=== PATIENT | female | born 1945 | race Caucasian/White ===

== ENCOUNTER 2017-11-08 15:56 | Inpatient (IN) | payer BC, MEDICARE ==
[2017-11-08] VITALS (8 sets, daily range): BP systolic 125–155; BP diastolic 74–81
[~2017-11-08] VITALS: Ht 160 cm; Wt 78.8 kg
[2017-11-08] MEDS ORDERED: aspirin 81mg tab.chew PO ONE ×2 (16:20→19:50)
[2017-11-08 16:36] LABS: BASOPHILS % (AUTO) 0.7 % (0-1); EOSINOPHILS # (AUTO) 0.2 X10'3 (0-0.9); EOSINOPHILS % (AUTO) 2.3 % (0-6); HEMATOCRIT 40.7 % (35.0-45.0); HEMOGLOBIN 13.9 g/dl (12.0-16.0); LYMPHOCYTES % (AUTO) 27.4 % (21-51); MEAN CORPUSCULAR HEMOGLOBIN 28.6 PG (27.0-31.0); MEAN CORPUSCULAR HGB CONC 34.1 % (33.0-36.5); MEAN CORPUSCULAR VOLUME 83.9 FL (78-98); MEAN PLATELET VOLUME 8.6 FL (7.4-10.4); MONOCYTES # (AUTO) 0.5 X10'3 (0-0.9); MONOCYTES % (AUTO) 6.6 % (2-12); NEUTROPHILS # (AUTO) 4.6 X10'3 (1.8-7.7); PLATELET COUNT 270 X10'3 (140-440); RED BLOOD COUNT 4.86 X10'6 (4.20-5.60); RED CELL DISTRIBUTION WIDTH 14.3 % (11.5-14.5); WHITE BLOOD COUNT 7.3 X10'3 (4.5-11.0)
[2017-11-08 16:48] LABS: PARTIAL THROMBOPLASTIN TIME 26 SECONDS (22-32); PROTHROMBIN TIME 10.1 SECONDS (9.0-12.0)
[2017-11-08 16:54] LABS: ALANINE AMINOTRANSFERASE 29 U/L (12-78); ALBUMIN 2.8 G/DL (3.4-5.0); ALBUMIN/GLOBULIN RATIO 0.6 (1.1-1.5); ALKALINE PHOSPHATASE 68 IU/L (46-116); ANION GAP 14 (8-16); ASPARTATE AMINO TRANSFERASE 20 U/L (10-37); BILIRUBIN,TOTAL 0.6 MG/DL (0.1-1.0); BLOOD UREA NITROGEN 13 MG/DL (7-18); BUN/CREATININE RATIO 14.9 (6.6-38.0); CALCIUM 9.2 MG/DL (8.5-10.1); CHLORIDE 103 MMOL/L (99-107); CREATININE 0.87 MG/DL (0.40-0.90); GLUCOSE 130 MG/DL (70-104); POTASSIUM 3.4 MMOL/L (3.5-5.1); SODIUM 142 MMOL/L (135-145); TOTAL PROTEIN 7.4 G/DL (6.4-8.2); eGFR 64 ML/MIN
[2017-11-08] MEDS ORDERED: heparin 10,000 units/1 ML INJ IV ONE ×2 (17:05→17:15)
[2017-11-08] MEDS: nitroGLYCERIN 0.4mg SUBLingual tab SL PRN ×3 (17:11→17:32)
[2017-11-08] MEDS ORDERED: ondansetron/PF 4mg/2ml inj IV ONE (17:35)
[2017-11-08] MEDS ORDERED: morphine 5 MG/ML injection ONE (17:35)
[2017-11-08] MEDS ORDERED: fentaNYL/PF 50MCG/1 ML 2ML syringe ONE (17:35)
[2017-11-08] MEDS ORDERED: LIDOcaine 1%/PF (10mg/ml) 5ml vial ONE (17:35)
[2017-11-08] MEDS ORDERED: morphine 4 MG/ML inj SYRINge IV ONE (17:35)
[2017-11-08] MEDS ORDERED: iohexol 350MG/ML 100ml bottle IV ONE ×2 (17:35→18:22)
[2017-11-08] MEDS ORDERED: midazolam 2 mg/2 ml injection ONE (17:35)
[2017-11-08] MEDS ORDERED: nitroGLYCERIN-Tridil 50MG/D5W 250 ML IV PRN (17:45)
[2017-11-08] MEDS ORDERED: NO HOME MEDS (17:47)
[2017-11-08 18:03] LABS: OCCULT BLOOD STOOL NEGATIVE (Neg)
[2017-11-08] MEDS ORDERED: heparin 1,000unit/ml 10ml vial 10 ML ONE (18:19)
[2017-11-08] MEDS ORDERED: ticagrelor 90mg tablet ONE (18:40)
[2017-11-08] MEDS ORDERED: ondansetron/PF 4mg/2ml inj IV PRN (19:50)
[2017-11-08] MEDS ORDERED: proCHLORperazine 10 MG/2 ml inj IV PRN (19:50)
[2017-11-08] MEDS ORDERED: HYDROcodone/acetaminophen 10/325mg tab PO PRN (19:50)
[2017-11-08] MEDS ORDERED: OXAZEpam 15mg capsule PO PRN (19:50)
[2017-11-08] MEDS ORDERED: normal saline 1000ml 1,000 ML IV ONE (19:50)
[2017-11-08] MEDS ORDERED: HYDROcodone/acetaminophen 5mg/325mg tablet PO PRN (19:50)
[2017-11-08] MEDS: carVEDilol 3.125mg tablet PO SCH (20:51)
[2017-11-08] MEDS: atorvastatin 20mg tablet PO SCH (20:51)
[2017-11-08] MEDS: lisinopril 5mg tablet PO SCH (20:51)
[2017-11-09 03:00] VITALS: BP 141/69
[2017-11-09 06:00] VITALS: BP 123/69
[2017-11-09 07:10] LABS: BASOPHILS % (AUTO) 0.4 % (0-1); EOSINOPHILS % (AUTO) 0.1 % (0-6); HEMATOCRIT 39.6 % (35.0-45.0); HEMOGLOBIN 13.6 g/dl (12.0-16.0); LYMPHOCYTES # (AUTO) 1.3 X10'3 (1.1-4.8); LYMPHOCYTES % (AUTO) 10.9 % (21-51); MEAN CORPUSCULAR HEMOGLOBIN 28.9 PG (27.0-31.0); MEAN CORPUSCULAR HGB CONC 34.5 % (33.0-36.5); MEAN CORPUSCULAR VOLUME 83.8 FL (78-98); MEAN PLATELET VOLUME 9.2 FL (7.4-10.4); MONOCYTES # (AUTO) 0.8 X10'3 (0-0.9); MONOCYTES % (AUTO) 6.6 % (2-12); PLATELET COUNT 267 X10'3 (140-440); RED BLOOD COUNT 4.72 X10'6 (4.20-5.60); RED CELL DISTRIBUTION WIDTH 14.3 % (11.5-14.5); WHITE BLOOD COUNT 12.2 X10'3 (4.5-11.0)
[2017-11-09 07:24] LABS: ALANINE AMINOTRANSFERASE 74 U/L (12-78); ALBUMIN 3.4 G/DL (3.4-5.0); ALKALINE PHOSPHATASE 62 IU/L (46-116); ANION GAP 11 (8-16); ASPARTATE AMINO TRANSFERASE 360 U/L (10-37); BILIRUBIN,TOTAL 0.7 MG/DL (0.1-1.0); BLOOD UREA NITROGEN 14 MG/DL (7-18); BUN/CREATININE RATIO 16.1 (6.6-38.0); CALCIUM 8.6 MG/DL (8.5-10.1); CHLORIDE 105 MMOL/L (99-107); CHOL/HDL RATIO 3.5 (0.00-4.99); CHOLESTEROL 179 MG/DL (0-200); CREATININE 0.87 MG/DL (0.40-0.90); GLUCOSE 119 MG/DL (70-104); HDL CHOLESTEROL 51 MG/DL (35-60); LDL CHOLESTEROL 110 MG/DL (50-100); POTASSIUM 4.1 MMOL/L (3.5-5.1); SODIUM 141 MMOL/L (135-145); TOTAL CARBON DIOXIDE 25.1 MMOL/L (24-32); TOTAL PROTEIN 6.8 G/DL (6.4-8.2); TRIGLYCERIDES 88 MG/DL (20-135); eGFR 64 ML/MIN
[2017-11-09] MEDS: ticagrelor 90mg tablet PO SCH ×2 (07:43→20:20)
[2017-11-09] MEDS: carVEDilol 3.125mg tablet PO SCH ×2 (07:45→20:20)
[2017-11-09] MEDS: aspirin 81mg tab.chew PO SCH (07:46)
[2017-11-09] MEDS ORDERED: aluminum hydroxide 1,920MG/30ml UD cup PO PRN (09:10)
[2017-11-09] MEDS ORDERED: mag hydrox/Alum hydrox/simeth 30ml oral suspension PO PRN (09:38)
[2017-11-09] MEDS: pantoprazole 40mg Tablet.DR PO SCH (09:44)
[2017-11-09 11:00] VITALS: BP 138/73
[2017-11-09 15:00] VITALS: BP 136/64
[2017-11-09 19:00] VITALS: BP 131/60
[2017-11-09] MEDS: atorvastatin 20mg tablet PO SCH (20:21)
[2017-11-09] MEDS: lisinopril 5mg tablet PO SCH (20:21)
[2017-11-10 03:00] VITALS: BP 114/62
[2017-11-10 05:30] VITALS: BP 111/62
[2017-11-10 05:36] LABS: BASOPHILS % (AUTO) 0.4 % (0-1); EOSINOPHILS # (AUTO) 0.2 X10'3 (0-0.9); EOSINOPHILS % (AUTO) 2.4 % (0-6); HEMATOCRIT 37.5 % (35.0-45.0); LYMPHOCYTES # (AUTO) 1.3 X10'3 (1.1-4.8); LYMPHOCYTES % (AUTO) 14.8 % (21-51); MEAN CORPUSCULAR HEMOGLOBIN 28.9 PG (27.0-31.0); MEAN CORPUSCULAR HGB CONC 34.7 % (33.0-36.5); MEAN CORPUSCULAR VOLUME 83.3 FL (78-98); MEAN PLATELET VOLUME 9.4 FL (7.4-10.4); MONOCYTES # (AUTO) 0.9 X10'3 (0-0.9); MONOCYTES % (AUTO) 10.1 % (2-12); NEUTROPHILS # (AUTO) 6.5 X10'3 (1.8-7.7); NEUTROPHILS % (AUTO) 72.3 % (42-75); PLATELET COUNT 212 X10'3 (140-440); RED CELL DISTRIBUTION WIDTH 14.4 % (11.5-14.5); WHITE BLOOD COUNT 9.1 X10'3 (4.5-11.0)
[2017-11-10 05:48] LABS: ALBUMIN 3.1 G/DL (3.4-5.0); ANION GAP 9 (8-16); BLOOD UREA NITROGEN 15 MG/DL (7-18); BUN/CREATININE RATIO 18.8 (6.6-38.0); CALCIUM 8.5 MG/DL (8.5-10.1); CHLORIDE 109 MMOL/L (99-107); GLUCOSE 104 MG/DL (70-104); SODIUM 144 MMOL/L (135-145); TOTAL CARBON DIOXIDE 25.9 MMOL/L (24-32); eGFR 71 ML/MIN
[2017-11-10 06:00] VITALS: BP 111/62
[2017-11-10] MEDS ORDERED: TICA90TA PO (06:18)
[2017-11-10] MEDS ORDERED: COR3.125T PO (06:18)
[2017-11-10] MEDS ORDERED: LISI-604 PO (06:18)
[2017-11-10] MEDS ORDERED: NITR0.4T51 SL (06:18)
[2017-11-10] MEDS ORDERED: ASPI-1265 PO (06:18)
[2017-11-10] MEDS ORDERED: ATOR20TA66 PO (06:18)
[2017-11-10] MEDS: carVEDilol 3.125mg tablet PO SCH (07:46)
[2017-11-10] MEDS: ticagrelor 90mg tablet PO SCH (07:46)
[2017-11-10] MEDS: pantoprazole 40mg Tablet.DR PO SCH (07:47)
[2017-11-10] MEDS: aspirin 81mg tab.chew PO SCH (07:48)
== END 2017-11-10 11:15 | disposition home or self-care (01) | DRG 247 ==
LOC: ER 15:56 → PCU 3S 19:39
PROVIDERS: ADMIT Internal Medicine Interventional Cardiology; ATTEND Internal Medicine Interventional Cardiology
PROC: 4A023N7 Measurement of Cardiac Sampling and Pressure, Left Heart, Percutaneous Approach (ICD-10-PCS; principal; 2017-11-08)
PROC: 027034Z Dilation of Coronary Artery, One Artery with Drug-eluting Intraluminal Device, Percutaneous Approach (ICD-10-PCS; 2017-11-08)
PROC: B2111ZZ Fluoroscopy of Multiple Coronary Arteries using Low Osmolar Contrast (ICD-10-PCS; 2017-11-08)
PROC: B2151ZZ Fluoroscopy of Left Heart using Low Osmolar Contrast (ICD-10-PCS; 2017-11-08)
DX: I21.09 ST elevation (STEMI) myocardial infarction involving other coronary artery of anterior wall (principal); E78.5 Hyperlipidemia, unspecified; I10 Essential (primary) hypertension; I25.10 Atherosclerotic heart disease of native coronary artery without angina pectoris; F12.90 Cannabis use, unspecified, uncomplicated; Z79.82 Long term (current) use of aspirin; Z79.899 Other long term (current) drug therapy; Z85.42 Personal history of malignant neoplasm of other parts of uterus; Z87.891 Personal history of nicotine dependence; Z90.710 Acquired absence of both cervix and uterus; Z88.8 Allergy status to other drugs, medicaments and biological substances
CPT/HCPCS: 93306; 93458; C9606; 36415; 71045; 80048; 80053; 80061; 82272; 84484; 85025; 85610; 85730; 87070; 96375; 99152; 99153; 99285; 99291; A4620; A6257; C1725; C1760; C1769; C1874; J1644; J2001; J2250; J2405; J3010; Q9967

== ENCOUNTER 2022-01-24 17:00 | Emergency (ER) | payer MEDICARE, BC ==
[~2022-01-24] VITALS: Ht 157.5 cm; Wt 76.0 kg
[~2022-01-24 17:00] MED LIST: ASPI-1265 PO; ATOR20TA66 PO; COR3.125T PO; LISI5TAB22 PO; NITR0.4T51 SL; NO HOME MEDS; TICA90TA PO
[2022-01-24 18:22] LABS: BASOPHILS # (AUTO) 0.1 X10'3 (0-0.2); BASOPHILS % (AUTO) 0.9 % (0-1); EOSINOPHILS # (AUTO) 0.2 X10'3 (0-0.9); EOSINOPHILS % (AUTO) 2.3 % (0-6); HEMATOCRIT 44.1 % (35.0-45.0); HEMOGLOBIN 14.8 g/dl (12.0-16.0); LYMPHOCYTES # (AUTO) 1.3 X10'3 (1.1-4.8); MEAN CORPUSCULAR HEMOGLOBIN 29.3 PG (27.0-31.0); MEAN CORPUSCULAR HGB CONC 33.5 g/dL (33.0-36.5); MEAN CORPUSCULAR VOLUME 87.4 FL (78-98); MEAN PLATELET VOLUME 8.6 FL (7.4-10.4); MONOCYTES # (AUTO) 0.8 X10'3 (0-0.9); MONOCYTES % (AUTO) 8.7 % (2-12); NEUTROPHILS % (AUTO) 74.1 % (42-75); PLATELET COUNT 246 X10'3 (140-440); RED BLOOD COUNT 5.05 X10'6 (4.20-5.60); RED CELL DISTRIBUTION WIDTH 13.9 % (11.5-14.5); WHITE BLOOD COUNT 9.5 X10'3 (4.5-11.0)
[2022-01-24 18:38] LABS: ALANINE AMINOTRANSFERASE 18 U/L (12-78); ALBUMIN 3.6 G/DL (3.4-5.0); ALKALINE PHOSPHATASE 65 IU/L (46-116); ANION GAP 5 (8-16); ASPARTATE AMINO TRANSFERASE 17 U/L (10-37); BILIRUBIN,TOTAL 0.9 MG/DL (0.1-1.0); BLOOD UREA NITROGEN 15 MG/DL (7-18); BUN/CREATININE RATIO 18.8 (6.6-38.0); CALCIUM 9.1 MG/DL (8.5-10.1); CHLORIDE 108 MMOL/L (99-107); GLUCOSE 100 MG/DL (70-104); POTASSIUM 3.7 MMOL/L (3.5-5.1); SODIUM 143 MMOL/L (135-145); TOTAL CARBON DIOXIDE 30.4 MMOL/L (24-32); TOTAL PROTEIN 7.2 G/DL (6.4-8.2); eGFR 70 ML/MIN
[2022-01-24] MEDS ORDERED: amox tr/potassium clavulanate 875/125mg TAB PO ONE (18:50)
[2022-01-24 19:00] VITALS: BP 162/65
[2022-01-24] MEDS ORDERED: AMOX-117 PO (19:03)
== END 2022-01-24 19:15 | disposition home or self-care (01) ==
LOC: ER 17:01
DX: K11.21 Acute sialoadenitis (principal); E78.00 Pure hypercholesterolemia, unspecified; I10 Essential (primary) hypertension; F12.10 Cannabis abuse, uncomplicated; Z88.8 Allergy status to other drugs, medicaments and biological substances; Z79.899 Other long term (current) drug therapy
CPT/HCPCS: 36415; 80053; 85025; 99283

== ENCOUNTER 2025-04-17 21:26 | Emergency (ER) | payer MEDICARE, BC ==
[~2025-04-17] VITALS: Ht 157.5 cm; Wt 70.5 kg
[~2025-04-17 21:26] MED LIST changes: -ATOR20TA66 PO; +CARV3.123 PO; -COR3.125T PO; -LISI5TAB22 PO; +LOSA25TA41 PO; -NO HOME MEDS; -TICA90TA PO
--- NOTE | 2025-04-17 23:06 | Physician Documentation ---
History of Present Illness ~ Chief Complaint: Eye Pain Stated Complaint: EYE PAIN Time Seen by MD: 23:04 Primary Medical Doctor: Dr. Adamson HPI Patient presents to the emergency room for evaluation of left eye discomfort and discoloration. Symptoms began three days ago. 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 She is concerned because her family member has had spontaneous retinal detachment. She reports no vision loss but did state that her vision was a bit blurry earlier. Her vision is currently just fine. She is concerned because the blood from her subconjunctival hematoma was pooling in her eye. Medication Reconciliation Allergies: Coded Allergies: epinephrine (Verified Adverse Reaction, Intermediate, tachycardia, 11/08/17) Scheduled Aspirin (Aspirin), 1 TAB PO DAILY, (Reported) Carvedilol (Carvedilol), 1 TAB PO BID, (Reported) Losartan Potassium (Losartan Potassium), 1 TAB PO DAILY, (Reported) Scheduled PRN Nitroglycerin SL* (Nitrostat SL*), 1 TAB SL Q5MIN PRN for Chest pain Q5min PRNx3-call MD, (Reported) Past Medical History Past Medical History: Coronary Artery Disease, High Cholesterol, Hypertension, Myocardial Infarction Past Surgical History: angioplasty, brain surgery Patient History: FH: thyroid disease Alcohol Use: Rarely Drug Use: marijuana Lives with: Spouse Lives In: Home Occupation: retired Review of Systems ROS All review of systems negative except as per HPI Physical Exam Vital Signs: Temperature: 98.0, Heart Rate: 69, Respiratory Rate: 16, BP: 197/74, Pulse Oximetry: 97, Weight: 70.450 Physical Exam General: Patient is awake, alert, oriented x4 in no acute distress and well ap pearing.~ Head: Normocephalic and atraumatic. Eyes: Conjunctival hematoma on left noted. EOMI. PERRL. ENT: Mucous membranes moist. Neck: Supple, trachea is midline. Chest: Clear to auscultation bilaterally without rales, rhonchi, or wheezes. There is no accessory muscle use or retractions. Cardiac: RRR without murmurs, gallops, or rubs. Progress Results/Orders Results/Orders Vital Signs 04/17/25 04/17/25 21:47 23:27 Temp 98.0 98.0 Pulse 69 71 Resp 16 15 B/P (MAP) 197/74 169/69 (102) Pulse Ox 97 100 Medical Decision Making Findings Bedside ultrasound performed by myself was negative for retinal detachment bilaterally, Wood's lamp was negative for foreign body or abrasions. Symptoms consistent with subconjunctival hematoma. I do not feel emergent labs or imaging is necessary Departure Disposition: HOME / SELF CARE / HOMELESS Impression: Primary Impression: Subconjunctival hematoma Condition: Stable Discharge Instructions: Subconjunctival Hemorrhage Referrals: NO PRIMARY CARE PROVIDER (PCP) Signature Scribe Signature: No scribe Attestation: The note accurately reflects work and decisions made by me.Frederick Crane MD 04/17/25 23:37 FREDERICK CRANE MD Apr 17, 2025 23:06
[2025-04-17 23:27] VITALS: BP 169/69; PULSE 71; RESP 15; TEMP 98; O2SAT 100
== END 2025-04-17 23:52 | disposition home or self-care (01) ==
LOC: ER 21:27
DX: S05.12XA Contusion of eyeball and orbital tissues, left eye, initial encounter (principal); I10 Essential (primary) hypertension; E78.00 Pure hypercholesterolemia, unspecified; F12.90 Cannabis use, unspecified, uncomplicated; I25.10 Atherosclerotic heart disease of native coronary artery without angina pectoris; I25.2 Old myocardial infarction; Z88.8 Allergy status to other drugs, medicaments and biological substances; Z79.82 Long term (current) use of aspirin; Z79.899 Other long term (current) drug therapy; X58.XXXA Exposure to other specified factors, initial encounter; Y93.89 Activity, other specified; Y92.89 Other specified places as the place of occurrence of the external cause; Y99.8 Other external cause status
CPT/HCPCS: 99284